=== PATIENT | male | born 1970 | race Hispanic/Latino ===

== ENCOUNTER 2016-10-12 19:53 | Emergency (ER) | payer MEDICAID ==
[2016-10-12 19:53] VITALS: BMI 22.7
[2016-10-12] MEDS ORDERED: Aspirin 325 mg EC Tablets PO STA (20:13)
[2016-10-12 20:20] LABS: BASO # 0.1 K/uL (0.0-0.2); BASO % 1.3 % (0.0-2.0); EOS # 0.5 K/uL (0.0-0.7); EOS % 5.2 % (0.0-4.0); HEMATOCRIT 39.9 % (35.0-51.0); LYMPH # 3.9 K/uL (1.0-4.3); LYMPH % 39.9 % (20.0-40.0); MEAN CORPUSCULAR HEMOGLOBIN 30.6 pg (27.0-31.0); MEAN CORPUSCULAR HGB CONC 33.6 g/dL (33.0-37.0); MEAN PLATELET VOLUME 8.1 fL (7.2-11.7); MONO # 0.7 K/uL (0.0-0.8); MONO % 7.3 % (0.0-10.0); NRBC % 0.1 % (0.0-2.0); RED CELL DISTRIBUTION WIDTH 13.4 % (11.5-14.5); WHITE BLOOD COUNT 9.9 K/uL (4.8-10.8)
[2016-10-12 20:21] LABS: MEAN CELL VOLUME 90.9 fL (80.0-94.0)
[2016-10-12 20:27] VITALS: RESP 18
[2016-10-12 20:30] LABS: CHLORIDE 103 mmol/L (98-107); POTASSIUM 3.5 mmol/L (3.6-5.2); SODIUM 142 mmol/L (132-148)
[2016-10-12 20:32] LABS: GFR AFRICAN-AMERICAN > 60
[2016-10-12 20:33] LABS: ALB/GLOB RATIO 1.6 (1.0-2.1); ALKALINE PHOSPHATASE 50 U/L (38-126); ALT/SGPT 27 U/L (21-72); AST/SGOT 28 U/L (17-59); BILIRUBIN,TOTAL 0.9 mg/dL (0.2-1.3); BLOOD UREA NITROGEN 18 mg/dL (9-20); CALCIUM 9.2 mg/dl (8.6-10.4); CARBON DIOXIDE 26 mmol/L (22-30); GLUCOSE,RANDOM 113 mg/dL (75-110)
--- NOTE | 2016-10-12 21:29 | C.PDOC ---
History Of Present Illness 45 year old male presents to the ED with complaints intermittent left sided chest pain for the last week. Patient notes the pain as a tightness that comes and goes that is not related to his activity. He notes pain radiates to his neck and has a history of anxiety and panic attacks. Patient notes current symptoms feel similar to pain when he has become anxious. Patient denies any nausea, vomiting, SOB, or abdominal pain. Time Seen by Provider: 10/12/16 20:03 Chief Complaint (Nursing): Chest Pain History Per: Patient History/Exam Limitations: no limitations Onset/Duration Of Symptoms: Days (one week ) Current Symptoms Are (Timing): Still Present Quality: Tightness, "Pain" Associated Symptoms: denies: Nausea Past Medical History Reviewed: Historical Data, Nursing Documentation, Vital Signs Vital Signs: Last Vital Signs Temp 97.9 F 10/12/16 20:25 Pulse 78 10/12/16 20:25 Resp 18 10/12/16 20:25 BP 128/78 10/12/16 20:25 Pulse Ox 98 10/12/16 21:59 - Medical History PMH: Anxiety, Arthritis (hands), Depression, Gall Bladder Disease (LAP TRAV MAY 2014), Chronic Pain (lower back) Surgical History: Cholecystectomy (06/24/14) - [facility] Procedures LAPAROSCOPIC CHOLECYSTECTOMY (06/22/14) RADICAL EXCIS SKIN LES (06/28/14) Family History: States: Unknown Family Hx - Social History Hx Tobacco Use: Yes Hx Alcohol Use: No Hx Substance Use: No - Immunization History Hx Tetanus Toxoid Vaccination: No Hx Influenza Vaccination: No Hx Pneumococcal Vaccination: No Review Of Systems Constitutional: Negative for: Fever, Chills, Sweats Cardiovascular: Positive for: Chest Pain (pain radiates to neck ) Respiratory: Negative for: Cough, Shortness of Breath Gastrointestinal: Negative for: Nausea, Vomiting, Abdominal Pain, Diarrhea Musculoskeletal: Positive for: Neck Pain (radiating from chest pain ) Physical Exam - Physical Exam Appears: Non-toxic, No Acute Distress Skin: Warm, Dry Head: Normacephalic Eye(s): bilateral: Normal Inspection Oral Mucosa: Moist Neck: Supple Chest: Symmetrical, No Deformity, Tenderness (tenderness to palpation of left upper chest wall ), No Ecchymosis, No Subcutaneous Emphysema Cardiovascular: Rhythm Regular Respiratory: Normal Breath Sounds, No Rales, No Rhonchi, No Stridor, No Wheezing Gastrointestinal/Abdominal: Soft, No Tenderness, No Distention, No Guarding, No Rebound Extremity: Normal ROM, No Tenderness Neurological/Psych: Oriented x3, Normal Speech ED Course And Treatment - Laboratory Results Result Diagrams: 10/12/16 20:16 10/12/16 20:16 Lab Interpretation: Abnormal (CPK elevated 254 with normal CKMB. Normal troponin ) ECG: Interpreted By Me ECG Rhythm: Sinus Rhythm ECG Interpretation: Normal O2 Sat by Pulse Oximetry: 98 Pulse Ox Interpretation: Normal - Radiology CXR: Interpreted by Me CXR Interpretation: Yes: No Acute Disease Reevaluation Time: 21:56 Reassessment Condition: Unchanged (Patient c/o persistent chest pain. Repeat EKG continues to be normal. Patient holding left chest wall and asking for something stronger than Ibuprophen.) Disposition Counseled Patient/Family Regarding: Studies Performed, Diagnosis, Need For Followup, Rx Given - Disposition Referrals: Juan Pisano MD [Medical Doctor] - Disposition: HOME/ ROUTINE Disposition Time: 21:57 Condition: STABLE Prescriptions: Naproxen [Naprosyn] 500 mg PO BID PRN #20 tablet PRN Reason: Pain, Moderate (4-7) Instructions: Chest Wall Pain (ED) - Clinical Impression Clinical Impression: Chest wall pain - Scribe Statement The provider has reviewed the documentation as recorded by the Scribkelton Haq All medical record entries made by the Scribe were at my direction and personally dictated by me. I have reviewed the chart and agree that the record accurately reflects my personal performance of the history, physical exam, medical decision making, and the department course for this patient. I have also personally directed, reviewed, and agree with the discharge instructions and disposition.
[2016-10-12] MEDS ORDERED: Oxycodone/Acetaminophen 5/325 mg Tab PO STA (21:59)
[2016-10-12] MEDS ORDERED: Oxycodone/Acetaminophen 5/325 mg Tab ONE (22:04)
[2016-10-12 22:13] VITALS: BP 136/79; PULSE 89; TEMP 98; O2SAT 97
--- NOTE | 2016-10-13 08:39 | RAD ---
HISTORY: chest pain COMPARISON: Chest x-ray performed 06/28/14 TECHNIQUE: Chest, one view. FINDINGS: LUNGS: No focal consolidation. Please note that chest x-ray has limited sensitivity for the detection of pulmonary masses. PLEURA: No significant pleural effusion identified. No definite pneumothorax . CARDIOVASCULAR: The cardiomediastinal silhouette appears within normal limits of size. OSSEOUS STRUCTURES: No acute osseous abnormality identified. VISUALIZED UPPER ABDOMEN: Unremarkable. OTHER FINDINGS: None. IMPRESSION: No focal consolidation, significant pleural effusion, or definite pneumothorax identified.
--- NOTE | 2016-10-14 15:41 | CARD ---
APPROVED REPORT EKG Measurement Heart [id number] <Conclusion> Normal sinus rhythm Normal ECG
--- NOTE | 2016-10-14 15:41 | CARD ---
APPROVED REPORT EKG Measurement Heart [id number] <Conclusion> Normal sinus rhythm Normal ECG
== END 2016-10-12 22:34 | disposition home or self-care (01) ==
LOC: C.ER 19:53
DX: R07.89 Other chest pain (principal)
CPT/HCPCS: 71010; 80053; 82550; 82553; 84484; 85025; 93005; 96374; 99284; J1885

== ENCOUNTER 2017-03-10 18:23 | Emergency (ER) | payer MEDICAID ==
[2017-03-10 18:23] VITALS: BMI 22.7
[2017-03-10 18:33] VITALS: O2SAT 99
[2017-03-10 20:03] LABS: BASO # 0.2 K/uL (0.0-0.2); BASO % 1.5 % (0.0-2.0); EOS # 0.6 K/uL (0.0-0.7); EOS % 5.5 % (0.0-4.0); HEMATOCRIT 41.2 % (35.0-51.0); LYMPH # 3.8 K/uL (1.0-4.3); LYMPH % 33.9 % (20.0-40.0); MEAN CELL VOLUME 91.9 fL (80.0-94.0); MEAN CORPUSCULAR HEMOGLOBIN 31.2 pg (27.0-31.0); MEAN CORPUSCULAR HGB CONC 33.9 g/dL (33.0-37.0); MEAN PLATELET VOLUME 7.6 fL (7.2-11.7); MONO % 8.8 % (0.0-10.0); RED CELL DISTRIBUTION WIDTH 13.6 % (11.5-14.5); WHITE BLOOD COUNT 11.2 K/uL (4.8-10.8)
--- NOTE | 2017-03-10 20:11 | C.PDOC ---
History Of Present Illness 46 year old male presents to the ED with complaints of chest pain to the anterior chest wall area beginning last night. Patient denies sweating, lightheadedness, weakness, numbness, or shortness of breath. Chief Complaint (Nursing): Chest Pain History Per: Patient History/Exam Limitations: no limitations Onset/Duration Of Symptoms: Days (1 day ) Current Symptoms Are (Timing): Still Present Quality: "Pain" Associated Symptoms: denies: Nausea, Diaphoresis Modifying Factors: None Exacerbating Factors: None Alleviating Factors: None Recent travel outside of the [place]: No Past Medical History Reviewed: Historical Data, Nursing Documentation, Vital Signs Vital Signs: Last Vital Signs Temp 97.9 F 03/10/17 19:56 Pulse 77 03/10/17 19:56 Resp 16 03/10/17 18:28 BP 124/81 03/10/17 19:56 Pulse Ox 99 03/10/17 21:24 - Medical History PMH: Anxiety (NON COMPLIANT WITH MEDS), Arthritis (hands), Depression, Gall Bladder Disease (LAP TRAV MAY 2014), Chronic Pain (lower back) Surgical History: Cholecystectomy (06/24/14) - [facility] Procedures LAPAROSCOPIC CHOLECYSTECTOMY (06/22/14) RADICAL EXCIS SKIN LES (06/28/14) Family History: States: Unknown Family Hx - Social History Hx Tobacco Use: Yes Hx Alcohol Use: No Hx Substance Use: No - Immunization History Hx Tetanus Toxoid Vaccination: No Hx Influenza Vaccination: No Hx Pneumococcal Vaccination: No Review Of Systems Constitutional: Negative for: Fever, Chills Cardiovascular: Positive for: Chest Pain. Negative for: Palpitations Respiratory: Negative for: Cough, Shortness of Breath Gastrointestinal: Negative for: Nausea, Vomiting, Abdominal Pain, Diarrhea Skin: Negative for: Rash Neurological: Negative for: Weakness, Numbness Physical Exam - Physical Exam Appears: Non-toxic, No Acute Distress Skin: Warm, Dry Head: Atraumatic, Normacephalic Eye(s): bilateral: Normal Inspection, PERRL, EOMI Oral Mucosa: Moist Neck: Normal ROM, Supple Chest: Symmetrical, No Deformity, Tenderness (left upper lateral chest wall tenderness ), Other (no rash ) Cardiovascular: Rhythm Regular, No Murmur Respiratory: Normal Breath Sounds, No Rales, No Rhonchi, No Wheezing Gastrointestinal/Abdominal: Soft, No Tenderness, No Distention, No Guarding, No Rebound Extremity: Normal ROM, No Tenderness, No Pedal Edema, No Calf Tenderness, No Deformity, No Swelling Neurological/Psych: Oriented x3, Normal Speech, Normal Cognition, Normal Motor, Normal Sensation ED Course And Treatment - Laboratory Results Result Diagrams: 03/10/17 20:00 03/10/17 20:00 ECG: Interpreted By Me, Viewed By Me ECG Rhythm: Sinus Rhythm ECG Interpretation: Normal, No Acute Changes Interpretation Of ECG: normal tracings, NSR Rate From EC O2 Sat by Pulse Oximetry: 99 (room air ) Progress Note: Blood work, EKG, and CXR were ordered. Patient was given Toradol. On exam patient states he would like percocet only for pain. Reevaluation Time: 21:25 (pain free) - Physician Consult Information Outcome Of Conversation: Iniatially assking for percocet for his chest pain. Disposition Counseled Patient/Family Regarding: Diagnosis - Disposition Referrals: [facility] [Outside] Disposition: HOME/ ROUTINE Disposition Time: 21:21 Condition: STABLE Prescriptions: Naproxen 375 mg PO TIDPC #14 tablet Instructions: Noncardiac Chest Pain (ED) Forms: [facility] (Belarusian) - POA Present On Arrival: None - Clinical Impression Clinical Impression: Non-cardiac chest pain - Scribe Statement The provider has reviewed the documentation as recorded by the Scribe Nallely Haq All medical record entries made by the Scribe were at my direction and personally dictated by me. I have reviewed the chart and agree that the record accurately reflects my personal performance of the history, physical exam, medical decision making, and the department course for this patient. I have also personally directed, reviewed, and agree with the discharge instructions and disposition.
[2017-03-10 20:13] LABS: CHLORIDE 102 mmol/L (98-107)
[2017-03-10 20:14] LABS: POTASSIUM 3.8 mmol/L (3.6-5.2); SODIUM 143 mmol/L (132-148)
[2017-03-10 20:16] LABS: ALB/GLOB RATIO 1.5 (1.0-2.1); ALKALINE PHOSPHATASE 47 U/L (38-126); ALT/SGPT 33 U/L (21-72); AST/SGOT 28 U/L (17-59); BILIRUBIN,TOTAL 0.5 mg/dL (0.2-1.3); BLOOD UREA NITROGEN 16 mg/dL (9-20); CARBON DIOXIDE 25 mmol/L (22-30); GFR AFRICAN-AMERICAN > 60; GLUCOSE,RANDOM 71 mg/dL (75-110); TOTAL PROTEIN 7.3 g/dL (6.3-8.3)
[2017-03-10 20:17] LABS: CALCIUM 9.6 mg/dl (8.6-10.4)
[2017-03-10 21:38] VITALS: BP 117/80; PULSE 65; RESP 20; TEMP 97.6
--- NOTE | 2017-03-11 08:38 | RAD ---
HISTORY: chest pain COMPARISON: 10/12/2016 TECHNIQUE: Chest PA and lateral FINDINGS: LUNGS: Diffuse increased interstitial lung markings. Mild venous congestion. Mild peribronchial thickening. PLEURA: No significant pleural effusion identified. No pneumothorax apparent. CARDIOVASCULAR: Normal. OSSEOUS STRUCTURES: No significant abnormalities. VISUALIZED UPPER ABDOMEN: Normal. OTHER FINDINGS: None. IMPRESSION: Diffuse increased interstitial lung markings. Mild venous congestion. Mild peribronchial thickening.
== END 2017-03-10 21:37 | disposition home or self-care (01) ==
LOC: C.ER 18:23
DX: R07.89 Other chest pain (principal)
CPT/HCPCS: 71020; 80053; 84484; 85025; 85378; 96374; 99285; J1885

== ENCOUNTER 2017-05-18 18:02 | Emergency (ER) | payer MEDICAID ==
[2017-05-18 18:02] VITALS: BMI 22.7
[2017-05-18 18:18] VITALS: RESP 20
[2017-05-18] MEDS ORDERED: Sodium Chloride 0.9% 1,000 ML IV ONE (18:50)
[2017-05-18] MEDS ORDERED: Sodium Chloride 0.9% 1,000 ML ONE (18:58)
--- NOTE | 2017-05-18 19:13 | C.PDOC ---
History Of Present Illness 46 year old male presents to the ED c/o intermittent non radiating abdominal pain mainly located across his abdomen that worsens after he eats heavy meals. Patient reports having similar symptoms before, has a Hx of gallbladder surgery and was seen in the ED 2 times for CP complaints prior to today. Patient is also c/o right ear pain, feels it is clogged tried using a Q-tip but fears he may have made it worse. Time Seen by Provider: 05/18/17 18:42 Chief Complaint (Nursing): Abdominal Pain History Per: Patient History/Exam Limitations: no limitations Onset/Duration Of Symptoms: Days Context: Food Location Of Pain/Discomfort: Epigastric Radiation Of Pain To:: None Quality Of Discomfort: "Pain" Associated Symptoms: denies: Fever, Nausea, Vomiting Exacerbating Factors: Food Recent travel outside of the [place]: No Additional History Per: Patient Past Medical History Reviewed: Historical Data, Nursing Documentation, Vital Signs Vital Signs: Last Vital Signs Temp 98.1 F 05/18/17 18:15 Pulse 81 05/18/17 18:15 Resp 20 05/18/17 18:15 BP 131/74 05/18/17 18:15 Pulse Ox 99 05/18/17 19:18 - Medical History PMH: Anxiety (NON COMPLIANT WITH MEDS), Arthritis (hands), Depression, Gall Bladder Disease (LAP TRAV MAY 2014), Chronic Pain (lower back) Denies: Diabetes, Hepatitis, HIV, HTN, Chronic Kidney Disease, Seizures, Sexually Transmitted Disease Surgical History: Cholecystectomy (06/24/14) - [facility] Procedures LAPAROSCOPIC CHOLECYSTECTOMY (06/22/14) RADICAL EXCIS SKIN LES (06/28/14) Family History: States: Unknown Family Hx - Social History Hx Tobacco Use: Yes Hx Alcohol Use: No Hx Substance Use: No - Immunization History Hx Tetanus Toxoid Vaccination: No Hx Influenza Vaccination: No Hx Pneumococcal Vaccination: No Review Of Systems Constitutional: Negative for: Fever, Chills ENT: Positive for: Ear Pain (Right) Cardiovascular: Negative for: Chest Pain, Palpitations Respiratory: Negative for: Cough, Shortness of Breath Gastrointestinal: Positive for: Abdominal Pain. Negative for: Nausea, Vomiting Skin: Negative for: Rash Neurological: Negative for: Weakness, Numbness Physical Exam - Physical Exam Appears: Non-toxic, No Acute Distress Skin: Normal Color, Warm, Dry Head: Atraumatic, Normacephalic Ear(s): Left: Normal, Right: TM Obscured By Wax Nose: No Discharge, No Deformity Oral Mucosa: Moist Neck: Normal ROM, Supple Chest: Symmetrical Cardiovascular: Rhythm Regular, No Murmur Respiratory: Normal Breath Sounds, No Rales, No Rhonchi, No Wheezing Gastrointestinal/Abdominal: Soft, Tenderness (Mild diffuse epigastric and RUQ), No Distention, No Guarding, No Rebound Extremity: Normal ROM, No Pedal Edema, No Calf Tenderness, No Swelling Neurological/Psych: Oriented x3, Normal Speech, Normal Cognition Gait: Steady ED Course And Treatment - Laboratory Results Result Diagrams: 05/18/17 19:18 05/18/17 19:18 Lab Interpretation: Normal O2 Sat by Pulse Oximetry: 99 (On RA) Pulse Ox Interpretation: Normal Progress Note: Patient treated with Protonix and Pepcid in the Ed with relief of symptoms. he now feels "some gas rumbling" but has no pain. Reevaluation Time: 19:48 Reassessment Condition: Improved Medical Decision Making Medical Decision Making: Plan: * EKG ordered * Blood work ordered * Pepcid 20 mg IVP given * Protonix 40 mg IVP given * Ua ordered Disposition Counseled Patient/Family Regarding: Studies Performed, Diagnosis, Need For Followup, Rx Given - Disposition Referrals: Juan Pisano MD [Medical Doctor] - Disposition: HOME/ ROUTINE Disposition Time: 19:49 Condition: IMPROVED Prescriptions: Dicyclomine [Bentyl] 20 mg PO QID PRN #30 tab PRN Reason: Pain, Moderate (4-7) Omeprazole 40 mg PO DAILY #30 capsule.dr Instructions: Epigastric Pain (ED) Forms: [facility] (Samoan) - Clinical Impression Clinical Impression: Epigastric abdominal pain - Scribe Statement The provider has reviewed the documentation as recorded by the Scribe Jorden Quispe All medical record entries made by the Scribe were at my direction and personally dictated by me. I have reviewed the chart and agree that the record accurately reflects my personal performance of the history, physical exam, medical decision making, and the department course for this patient. I have also personally directed, reviewed, and agree with the discharge instructions and disposition.
[2017-05-18 19:28] LABS: BASO # 0.1 K/uL (0.0-0.2); BASO % 1.3 % (0.0-2.0); EOS # 0.5 K/uL (0.0-0.7); EOS % 5.3 % (0.0-4.0); HEMATOCRIT 42.7 % (35.0-51.0); LYMPH # 2.4 K/uL (1.0-4.3); LYMPH % 26.9 % (20.0-40.0); MEAN CELL VOLUME 92.3 fL (80.0-94.0); MEAN CORPUSCULAR HEMOGLOBIN 31.2 pg (27.0-31.0); MEAN CORPUSCULAR HGB CONC 33.8 g/dL (33.0-37.0); MEAN PLATELET VOLUME 8.6 fL (7.2-11.7); MONO # 0.8 K/uL (0.0-0.8); MONO % 8.9 % (0.0-10.0); NRBC % 0.1 % (0.0-2.0); WHITE BLOOD COUNT 8.9 K/uL (4.8-10.8)
[2017-05-18 19:34] LABS: URINE BILIRUBIN NEGATIVE (NEGATIVE); URINE BLOOD NEGATIVE (NEGATIVE); URINE COLOR Yellow (YELLOW); URINE GLUCOSE (UA) NORMAL (Normal); URINE KETONE NEGATIVE (NEGATIVE); URINE LEUKOCYTE ESTERASE NEG Leu/uL (Negative); URINE PROTEIN NEGATIVE (NEGATIVE); URINE UROBILINOGEN NORMAL mg/dL (0.2-1.0); WBC URINE 2 /hpf (0-5)
[2017-05-18 19:36] LABS: ALB/GLOB RATIO 1.5 (1.0-2.1); ALKALINE PHOSPHATASE 45 U/L (38-126); ALT/SGPT 48 U/L (21-72); AST/SGOT 33 U/L (17-59); BILIRUBIN,TOTAL 0.8 mg/dL (0.2-1.3); BLOOD UREA NITROGEN 16 mg/dL (9-20); CALCIUM 8.7 mg/dl (8.6-10.4); CARBON DIOXIDE 28 mmol/L (22-30); CHLORIDE 107 mmol/L (98-107); GFR AFRICAN-AMERICAN > 60; GLUCOSE,RANDOM 94 mg/dL (75-110); POTASSIUM 3.9 mmol/L (3.6-5.2); SODIUM 142 mmol/L (132-148); TOTAL PROTEIN 6.8 g/dL (6.3-8.3)
[2017-05-18 20:12] VITALS: BP 130/89; PULSE 74; TEMP 97.9; O2SAT 98
== END 2017-05-18 20:08 | disposition home or self-care (01) ==
LOC: C.ER 18:02
DX: R10.13 Epigastric pain (principal)
CPT/HCPCS: 80053; 81001; 83690; 85025; 96361; 96374; 96375; 99285; C9113; J7040

== ENCOUNTER 2017-10-27 06:50 | Emergency (ER) | payer SELFPAY ==
[2017-10-27 06:50] VITALS: BMI 22.7
[2017-10-27 07:05] VITALS: BP 134/89; PULSE 73; RESP 18; TEMP 97.7; O2SAT 100
[2017-10-27] MEDS ORDERED: Oxycodone/Acetaminophen 5/325 mg Tab PO STA (07:33)
--- NOTE | 2017-10-27 07:33 | C.PDOC ---
History Of Present Illness 46 yo male with h/o alcohol dependence c/o right sided dental pain since last night. Not that his tooth crack last year, he was unable to fix it and last lost his insurance. The same tooth causes him pain intermittently. Took aspirin without relief. Denies swelling, fever, neck pain, difficulty breathing or swallowing. Time Seen by Provider: 10/27/17 07:11 Chief Complaint (Nursing): Dental Pain History Per: Patient History/Exam Limitations: no limitations Onset/Duration Of Symptoms: Hrs Current Symptoms Are (Timing): Still Present Past Medical History Vital Signs: Last Vital Signs Temp 97.7 F 10/27/17 06:59 Pulse 73 10/27/17 06:59 Resp 18 10/27/17 06:59 BP 134/89 10/27/17 06:59 Pulse Ox 100 10/27/17 07:45 - Medical History PMH: Anxiety (NON COMPLIANT WITH MEDS), Arthritis (hands), Depression, Gall Bladder Disease (LAP TRAV MAY 2014), Chronic Pain (lower back) Denies: Diabetes, Hepatitis, HIV, HTN, Chronic Kidney Disease, Seizures, Sexually Transmitted Disease Surgical History: Cholecystectomy (06/24/14) - [facility] Procedures LAPAROSCOPIC CHOLECYSTECTOMY (06/22/14) RADICAL EXCIS SKIN LES (06/28/14) Family History: States: Unknown Family Hx - Social History Hx Tobacco Use: Yes Hx Alcohol Use: No Hx Substance Use: No - Immunization History Hx Tetanus Toxoid Vaccination: No Hx Influenza Vaccination: No Hx Pneumococcal Vaccination: No Review Of Systems Except As Marked, All Systems Reviewed And Found Negative. ENT: Positive for: Mouth Pain Physical Exam - Physical Exam Appears: Well, Non-toxic, No Acute Distress (pt is playing a card game on his phone while answering questions) Skin: Normal Color, Warm, Dry Head: Atraumatic, Normacephalic Eye(s): bilateral: Normal Inspection, EOMI Nose: Normal Oral Mucosa: Moist Tongue: Normal Appearing Lips: Normal Appearing Teeth: Tender To Palpation ((+) pain to the right maxillar premolar with partial filling) Gingiva: Normal Appearing, No Swelling, No Tender Throat: Normal, No Erythema, No Exudate, No Drooling Neck: Normal, Normal ROM, Supple Lymphatic: Normal Exam Chest: Symmetrical Cardiovascular: Rhythm Regular Respiratory: Normal Breath Sounds, No Accessory Muscle Use Back: Normal Inspection Extremity: Normal ROM Neurological/Psych: Oriented x3, Normal Speech ED Course And Treatment O2 Sat by Pulse Oximetry: 100 Progress Note: PT requests percocet. It was stressed the importance of dental follow up for his reccurring tooth pain. Disposition - Disposition Referrals: [facility] [Outside] Disposition: HOME/ ROUTINE Disposition Time: 07:33 Condition: STABLE Additional Instructions: FOllow up with the dental clicic in 1-2 days. Return to ER if symptoms persist or worsen. Prescriptions: Amoxicillin 875 mg PO BID #14 tablet Benzocaine 7.5% [Orajel] 7.5 gel MM TID #1 tube Naproxen [Naprosyn] 1 tab PO BID PRN #20 tab PRN Reason: Pain Instructions: Dental Pain (DC) Forms: [facility] (Tanzanian) - Clinical Impression Clinical Impression: Tooth ache
[2017-10-27] MEDS ORDERED: Oxycodone/Acetaminophen 5/325 mg Tab ONE (07:41)
== END 2017-10-27 07:50 | disposition home or self-care (01) ==
LOC: C.ER 06:50
DX: K08.89 Other specified disorders of teeth and supporting structures (principal); F17.210 Nicotine dependence, cigarettes, uncomplicated